=== PATIENT | male | born 1990 | race Caucasian/White ===

== ENCOUNTER 2017-09-06 07:31 | Day surgery (SDC) | payer OTHER ==
[~2017-09-06 07:31] MED LIST: Dexamethasone 4 MG/ML 5 ML MDV ONE; Glycopyrrolate 0.2 MG/ML SDV ONE; Lactated Ringers 1,000 ML IV SCH; Lidocaine 2% 5 ML SDV ONE; Midazolam 1 MG/ML 2 ML SDV ONE; Ondansetron 4 MG/2 ML SDV ONE; Propofol 200 MG/20 ML SDV ONE; Rocuronium 10 MG/ML 10 ML Syringe ONE; Sugammadex Sodium 200 MG/2 ML VIAL ONE; fentaNYL 100 MCG/2 ML SDV ONE
[2017-09-06] MEDS ORDERED: Oxymetazoline 0.05% Nasal Spray 15 ML Bottle ONE (07:32)
[2017-09-06] MEDS ORDERED: Bupivacaine 25%/EPINEPHrine/PF 30 ML ONE (07:32)
[2017-09-06] MEDS ORDERED: EPINEPHrine 1 MG/ML SDV ONE (07:32)
--- NOTE | 2017-09-06 08:05 | PCM.PREANE ---
Preanesthetic Assessment - Anesthesia/Transfusion/Family Hx Anesthesia History: Prior Anesthesia Without Reaction Family History of Anesthesia Reaction: No Transfusion History: No Prior Transfusion(s) - Review of Systems General: No Symptoms Pulmonary: No Symptoms, Other (red sx) Cardiovascular: No Symptoms Gastrointestinal: No Symptoms Neurological: No Symptoms Other: Reports: None - Physical Assessment NPO Status Date: 09/05/17 Height: 1.85 m Weight: 89.811 kg ASA Class: 2 Mental Status: Alert & Oriented x3 Airway Class: Mallampati = 2 Dentition: Reports: Normal Dentition ROM/Head Extension: Full Lungs: Clear to Auscultation, Normal Respiratory Effort Cardiovascular: Regular Rate, Regular Rhythm - Allergies Allergies/Adverse Reactions: Allergies Allergy/AdvReac Type Severity Reaction Status Date / Time sunflower seed Allergy Anaphylactic Verified 09/01/17 12:34 Shock - Anesthesia Plan Pre-Op Medication Ordered: None (PMH" snoring an apnic spells by hx, no formal RED testing, has some dysphagia wif xray documentation of HH, no hx or bile or acid reflus sx when recumbanr) - Acknowledgements Anesthesia Type Planned: General Anesthesia Pt an Appropriate Candidate for the Planned Anesthesia: Yes Alternatives and Risks of Anesthesia Discussed w Pt/Guardian: Yes Pt/Guardian Understands and Agrees with Anesthesia Plan: Yes PreAnesthesia Questionnaire HEENT History: Reports: Other (See Below) Other HEENT History: wears glasses/contacts, has lower permanent retainer Gastrointestinal History: Reports: Hiatal Hernia Endocrine/Metabolic History: Reports: Hypothyroidism - Past Surgical History HEENT Surgical History: Reports: Naso-Sinus Surgery, Oral Surgery Other HEENT Surgeries/Procedures: hx of Septoplasty and Rhinoplasty, wisdom teeth removed - SUBSTANCE USE Smoking Status *Q: Never Smoker Recreational Drug Use History: No - HOME MEDS Home Medications: Home Meds Levothyroxine Sodium [Synthroid] 100 mcg PO DAILY 09/01/17 [History] - CURRENT (IN HOUSE) MEDS Current Meds: Current Medications Lactated Ringer's (Ringers, Lactated) 1,000 mls @ 125 mls/hr IV ASDIRECTED STEPHANIE Discontinued Medications Dexamethasone (Dexamethasone) Confirm Administered Dose 20 mg .ROUTE .STK-MED ONE Stop: 09/06/17 07:26 Epinephrine HCl (Adrenalin) Confirm Administered Dose 1 mg .ROUTE .STK-MED ONE Stop: 09/06/17 07:33 Fentanyl (Sublimaze) Confirm Administered Dose 100 mcg .ROUTE .ST-MED ONE Stop: 09/06/17 07:30 Fentanyl (Sublimaze) Confirm Administered Dose 100 mcg .ROUTE .ST-MED ONE Stop: 09/06/17 07:30 Glycopyrrolate (Robinul) Confirm Administered Dose 0.2 mg .ROUTE .ST-MED ONE Stop: 09/06/17 07:26 Bupivacaine HCl/Epinephrine Bitart (Sensorc Mpf 0.25%-Epi [id number]) Confirm Administered Dose 30 mls @ as directed .ROUTE .ST-MED ONE Stop: 09/06/17 07:33 Lidocaine (Xylocaine-Mpf 2%) Confirm Administered Dose 5 ml .ROUTE .[facility]-MED ONE Stop: 09/06/17 07:26 Midazolam HCl (Versed 1 Mg/Ml) Confirm Administered Dose 2 mg .ROUTE .ST-MED ONE Stop: 09/06/17 07:30 Ondansetron HCl (Zofran) Confirm Administered Dose 4 mg .ROUTE .ST-MED ONE Stop: 09/06/17 07:26 Oxymetazoline HCl (Afrin Original 0.05% Nasal Gonzales) Confirm Administered Dose 30 ml .ROUTE .ST-MED ONE Stop: 09/06/17 07:33 Propofol (Diprivan 20 Ml) Confirm Administered Dose 200 mg .ROUTE .STK-MED ONE Stop: 09/06/17 07:30 Rocuronium R[place] (Zemuron) Confirm Administered Dose 100 mg .ROUTE .ST-MED ONE Stop: 09/06/17 07:26
[2017-09-06] MEDS ORDERED: fentaNYL 100 MCG/2 ML SDV ONE (08:55)
[2017-09-06] MEDS ORDERED: oxyCODONE 5 MG Tab PO PRN (09:35)
[2017-09-06] MEDS ORDERED: Ibuprofen 800 MG Tab PO SCH (09:45)
[2017-09-06] MEDS ORDERED: HYDROmorphone 2 MG/ML SDV ONE (09:50)
[2017-09-06] MEDS: HYDROmorphone 2 MG/ML SDV IVPUSH ONE ×5 (09:51→10:16)
[2017-09-06] MEDS ORDERED: Acetaminophen 1,000 MG in Premix Bag 1 BAG IV ONE (10:00)
--- NOTE | 2017-09-06 10:17 | PCM.OPNOTE ---
- General Post-Op/Procedure Note Condition: Good Free Text/Narrative:: Preoperative Diagnosis: Snoring, sleep disordered breathing, tonsillar hypertrophy, long uvula Postoperative Diagnosis:Snoring, sleep disordered breathing, tonsillar hypertrophy, long uvula Procedure: Bilateral tonsillectomy, uvulectomy [ CPT 73597] Surgeon: Teresita Nunn MD Anesthesia: GA Anesthesiologist: Rick PRICE Date of procedure: 09/06/2017 Indications: Snoring, sleep disordered breathing, tonsillar hypertrophy, long uvula Findings: bilateral gr 3 tonsils; elongated uvula Operation Details: An informed consent was obtained. A time out was performed and the patient was brought back to the operating room. General anesthesia was administered with an endotracheal tube. The table was turned 90 away from the anesthesia cart. Patient was appropriately positioned on the operating table. An appropriately sized Antonieta Wilson mouth gag was positioned and suspended from a Guardado stand. Uvula was grasped with a forcep and using a monopolar point bovie at (setting of 15/15 cut coagulation) was resected approx 4 mm away from the base; hemostasis was achieved. Marcaine 0.25% with 1: 200, 000 epinephrine was injected into the base ( 1 ml was used). Mucosa was sutured with 3.0 vicryl. The right tonsil was grasped with a Jorge Luis Brown tonsil holding forceps, upper pole dissected with bipolar forceps. Further dissection was carried out with combination of cold steel with tonsillar dissector and bipolar. The tonsillar fossa was packed with an oxymetazoline 0.05% soaked 2 x 2 gauze. The left tonsil was then similarly dissected and clamped and ligated and fossa packed with an oxymetazoline 0.05% soaked 2 x 2 gauze. Hemostasis was achieved bilaterally with the bipolar cautery at a setting of 10 W. Bilateral fossae were irrigated with warm saline and hemostasis was ensured. Postnasal space was suctioned clear. This concluded the procedure. Mouth gag was removed the oral cavity was inspected. Lips gums and teeth were intact. Lubricating jelly was applied to the lips. The patient was turned over to the anesthesiologist for recovery. Specimens: Uvula and bilateral tonsils IV fluids: 600 ml Blood loss : 45 nml Blood products: nil Disposition: PACU for recovery Follow up: In 1 week.
--- NOTE | 2017-09-06 10:29 | PCM.POSTAN ---
POST ANESTHESIA ASSESSMENT - MENTAL STATUS Mental Status: Alert, Oriented - RESPIRATORY Respiratory Status: Respiratory Rate WNL, Airway Patent, O2 Saturation Stable - CARDIOVASCULAR CV Status: Pulse Rate WNL, Blood Pressure Stable - GASTROINTESTINAL GI Status: No Symptoms - POST OP HYDRATION Hydration Status: Adequate & Stable
--- NOTE | 2017-09-06 12:22 | PCM48HPAN ---
Post Anesthesia Note - EVALUATION WITHIN 48HRS OF ANESTHETIC Vital Signs in Normal Range: Yes Patient Participated in Evaluation: Yes Respiratory Function Stable: Yes Airway Patent: Yes Cardiovascular Function Stable: Yes Hydration Status Stable: Yes Pain Control Satisfactory: Yes Nausea and Vomiting Control Satisfactory: Yes Mental Status Recovered: Yes Resp Rate: 11 - COMMENTS/OBSERVATIONS Free Text/Narrative:: pt.says he feels good and is ok with going home alert and talking on phone comfortable
== END 2017-09-06 12:40 | disposition home or self-care (01) ==
LOC: MW.SDS 07:31
PROVIDERS: ATTEND Otolaryngology
DX: J35.1 Hypertrophy of tonsils (principal); Q38.5 Congenital malformations of palate, not elsewhere classified; E03.9 Hypothyroidism, unspecified; G47.33 Obstructive sleep apnea (adult) (pediatric); Z79.899 Other long term (current) drug therapy
CPT/HCPCS: 42140; 42826; A9270; J1100; J1170; J2250; J2405; J3010; J3490; J7120; 00170; 88304; J0171; J2704